=== PATIENT | female | born 1965 | race Caucasian/White ===

== ENCOUNTER 2024-01-29 14:48 | Emergency (ER) | payer MEDICARE, MEDICAID ==
[~2024-01-29] VITALS: Ht 175.3 cm; Wt 59.0 kg
[2024-01-29 14:51] VITALS: BP 122/76; PULSE 102; RESP 16; TEMP 97.1; O2SAT 95
[2024-01-29] MEDS ORDERED: IBUPROFEN 600MG TABLET PO ONE (15:30)
[2024-01-29] MEDS ORDERED: ACETAMINOPHEN 325MG TABLET PO ONE (15:30)
[2024-01-29] MEDS ORDERED: TOPUD MT (18:12)
[2024-01-29] MEDS ORDERED: IBUP-1523 MT (18:12)
[2024-01-29] MEDS: ACETAMINOPHEN 325MG TABLET PO NR (18:19)
[2024-01-29] MEDS: IBUPROFEN 600MG TABLET PO NR (18:19)
== END 2024-01-29 18:20 | disposition home or self-care (01) ==
LOC: ER 14:48
DX: S80.211A Abrasion, right knee, initial encounter (principal); R56.9 Unspecified convulsions; Z87.19 Personal history of other diseases of the digestive system; W10.8XXA Fall (on) (from) other stairs and steps, initial encounter; Y93.89 Activity, other specified; Y92.89 Other specified places as the place of occurrence of the external cause; Y99.8 Other external cause status
CPT/HCPCS: 73560; 99283